=== PATIENT | male | born 1930 | race Hispanic/Latino ===

== ENCOUNTER 2017-01-29 15:05 | Emergency (ER) | payer MEDICARE ==
[2017-01-29 15:27] VITALS: BMI 30.2
[2017-01-29 15:29] VITALS: TEMP 98.3
--- NOTE | 2017-01-29 17:06 | RAD ---
PROCEDURE: Right Hand Radiographs. HISTORY: r/o fx COMPARISON: None available. FINDINGS: BONES: Osseous demineralization. Degenerative changes. 3 mm thin somewhat oblong ossific density adjacent to the base of the 1st proximal phalanx, possibly tiny avulsion fracture from unclear donor site. Correlate with physical exam. The remainder of the visualized osseous structures appear intact. No acute displaced fracture. JOINTS: No dislocation. SOFT TISSUES: Mild soft tissue swelling. No evidence of radiopaque foreign body. OTHER FINDINGS: None. IMPRESSION: 3 mm thin somewhat oblong ossific density adjacent to the base of the 1st proximal phalanx, possibly tiny avulsion fracture from unclear donor site. Correlate with physical exam. Osseous demineralization. Degenerative changes.
[2017-01-29 17:11] VITALS: BP 142/85; PULSE 70; RESP 16; O2SAT 98
--- NOTE | 2017-01-29 17:33 | C.PDOC ---
History Of Present Illness 86 yr old male presents to the ER stating today while walking, he missed a step and fell struck his right eyebrow with his glasses. Patient states the glasses did not break. Patient reports of mild pain to right hand. Anthony any symptoms prior to the fall, LOC, vision changes, nausea, vomiting, shoulder pain, headache, weakness or numbness. Time Seen by Provider: 01/29/17 15:43 Chief Complaint (Nursing): Abnormal Skin Integrity History Per: Patient History/Exam Limitations: no limitations Onset/Duration Of Symptoms: Sudden Onset (ROLL OVER LOADER ) Past Medical History Reviewed: Historical Data, Nursing Documentation, Vital Signs Vital Signs: Last Vital Signs Temp 98.3 F 01/29/17 15:28 Pulse 70 01/29/17 17:10 Resp 16 01/29/17 17:10 BP 142/85 01/29/17 17:10 Pulse Ox 98 01/29/17 18:05 Family History: States: No Known Family Hx - Social History Hx Alcohol Use: No Hx Substance Use: No - Immunization History Hx Tetanus Toxoid Vaccination: No Hx Influenza Vaccination: No Hx Pneumococcal Vaccination: No Review Of Systems Except As Marked, All Systems Reviewed And Found Negative. Eyes: Negative for: Vision Change Gastrointestinal: Negative for: Nausea, Vomiting Musculoskeletal: Positive for: Hand Pain (Mild right hand pain ). Negative for : Shoulder Pain Skin: Positive for: Other ((+) Laceration to the right eyebrow ) Neurological: Negative for: Weakness, Numbness, Headache Physical Exam - Physical Exam Appears: Non-toxic, No Acute Distress Skin: Warm, Dry, Other ((+) Superficial laceration over the right eyebrow. ) Head: Atraumatic, Normacephalic Eye(s): bilateral: Normal Inspection, PERRL, EOMI Oral Mucosa: Moist Chest: Symmetrical, No Tenderness Cardiovascular: Rhythm Regular, No Murmur Respiratory: Normal Breath Sounds, No Rales, No Rhonchi, No Stridor, No Wheezing Extremity: Normal ROM, Tenderness (Right Hand - Tenderness to the 4th and 5th metacarpel area), Capillary Refill (<2), No Swelling Pulses: Left Radial: Normal, Right Radial: Normal Neurological/Psych: Oriented x3, Normal Speech, Normal Motor ED Course And Treatment O2 Sat by Pulse Oximetry: 98 (RA ) Pulse Ox Interpretation: Normal - Other Rad X-Ray - Right Hand X-Ray: Viewed By Me, Read By Radiologist Interpretation: PROCEDURE: Right Hand Radiographs. HISTORY: r/o fx. COMPARISON: None available. FINDINGS: BONES: Osseous demineralization. Degenerative changes. 3 mm thin somewhat oblong ossific density adjacent to the base of the 1st proximal phalanx, possibly tiny avulsion fracture from unclear donor site. Correlate with physical exam. The remainder of the visualized osseous structures appear intact. No acute displaced fracture. JOINTS: No dislocation. SOFT TISSUES: Mild soft tissue swelling. No evidence of radiopaque foreign body. OTHER FINDINGS: None. IMPRESSION: 3 mm thin somewhat oblong ossific density adjacent to the base of the 1st proximal phalanx , possibly tiny avulsion fracture from unclear donor site. Correlate with physical exam. Osseous demineralization. Degenerative changes. Medical Decision Making Medical Decision Making: PLAN: * X-Ray - Left Hand Disposition - Disposition Referrals: [facility] Hector Li, [Non-Staff] - Disposition: HOME/ ROUTINE Disposition Time: 17:00 Condition: GOOD Additional Instructions: Thank you for letting us take care of you today. Your provider was Dr. Mcgill. You were treated for eyebrow laceration and hand contusion. The emergency medical care you received today was directed at your acute symptoms. If you were prescribed any medication, please fill it and take as directed. It may take several days for your symptoms to resolve. Return to the Emergency Department if your symptoms worsen, do not improve, or if you have any other problems. Please contact your doctor or call one of the physicians/clinics you have been referred to that are listed on the Patient Visit Information form that is included in your discharge packet. Bring any paperwork you were given at discharge with you along with any medications you are taking to your follow up visit. Our treatment cannot replace ongoing medical care by a primary care provider (PCP) outside of the emergency department. Thank you for allowing the [facility] team to be part of your care today. Follow up with your doctor or the emergency room for any concerns. Prescriptions: Ibuprofen [Motrin] 600 mg PO Q6 PRN #20 tab PRN Reason: Pain, Moderate (4-7) Instructions: Skin Adhesive Care (ED) Forms: [facility] (Georgian) - Clinical Impression Clinical Impression: Laceration - Scribe Statement The provider has reviewed the documentation as recorded by the Kristin Del Cid Provider Attestation: All medical record entries made by the Kristin were at my direction and personally dictated by me. I have reviewed the chart and agree that the record accurately reflects my personal performance of the history, physical exam, medical decision making, and the department course for this patient. I have also personally directed, reviewed, and agree with the discharge instructions and disposition.
== END 2017-01-29 17:10 | disposition home or self-care (01) ==
LOC: C.ER 15:05
DX: S01.111A Laceration without foreign body of right eyelid and periocular area, initial encounter (principal); S60.221A Contusion of right hand, initial encounter; W01.0XXA Fall on same level from slipping, tripping and stumbling without subsequent striking against object, initial encounter